=== PATIENT | female | born 1955 | race Hispanic/Latino ===

== ENCOUNTER 2017-03-16 04:45 | Inpatient (IN) | payer MEDICARE ==
[~2017-03-16] VITALS: Ht 157.5 cm; Wt 77.6 kg
[~2017-03-16 04:45] MED LIST: ACET650T9 PO; ATOR40TA71 PO; BRIM15OS OU; BRINOS OS; CARV25TA PO; CELE-84 PO; CLOP75TA32 PO; HYDR-4153 PO; INSLAN SQ; INSU3INS3 SQ; ISOS30TA6 PO; LORA0.5T2 PO
[2017-03-16] MEDS ORDERED: ACETAMINOPHEN 325 MG TAB ONE (05:22)
[2017-03-16 05:27] LABS: BASOPHILS % (AUTO) 0.6 % (0.0-5.0); EOSINOPHILS % (AUTO) 1.6 % (0.0-8.0); HEMATOCRIT 25.3 % (36-48); MEAN CORPUSCULAR HEMOGLOBIN 31.3 pg (27.0-33.0); MEAN CORPUSCULAR HGB CONC 32.5 g/dL (32.0-36.0); MEAN CORPUSCULAR VOLUME 96.2 fL (79-99); MONOCYTES % (AUTO) 5.3 % (3.0-13.0); NEUTROPHILS % (AUTO) 86.2 % (40.0-77.0); PLATELET COUNT (AUTO) 195 K/uL (130-400); RED BLOOD CELL COUNT(AUTO) 2.63 MIL/uL (4.00-5.50); RED CELL DISTRIBUTION WIDTH 13.5 % (11.0-15.5); WHITE BLOOD COUNT (AUTO) 16.3 K/uL (4.8-10.8)
[2017-03-16 05:45] LABS: ALBUMIN 3.7 g/dL (3.5-5.0); BILIRUBIN,TOTAL 0.4 mg/dL (0.2-1.0); POTASSIUM 4.8 mmol/L (3.5-5.1); TOTAL PROTEIN, SERUM 7.1 g/dL (6.0-8.3)
[2017-03-16 05:50] LABS: CREATININE 12.2 mg/dL (0.5-1.5)
[2017-03-16 05:51] LABS: CREATINE KINASE MB 0.8 ng/mL (0.5-3.6); CREATINE KINASE, TOTAL 60 U/L (21-232); MYOGLOBIN 183 ng/mL (10-92); TROPONIN I < 0.04 ng/mL (0.00-0.06)
[2017-03-16 06:03] LABS: LYMPHOCYTES % (AUTO) 6.3 % (21.0-51.0)
[2017-03-16] MEDS ORDERED: FUROSEMIDE 10 MG/ML 2ML VIAL ONE (07:36)
[2017-03-16] MEDS ORDERED: FUROSEMIDE 10 MG/ML 4ML VIAL ONE (07:36)
[2017-03-16 09:45] VITALS: BP 159/62
[2017-03-16] MEDS ORDERED: ALBUHFA IH (10:05)
[2017-03-16] MEDS ORDERED: SEVE800T7 PO (10:05)
[2017-03-16] MEDS ORDERED: HYDRALAZINE HCL 20 MG/ML VIAL IV PRN (11:15)
[2017-03-16] MEDS ORDERED: LORAZEPAM 0.5 MG TABLET PO PRN (11:15)
[2017-03-16 11:32] VITALS: BP 145/51
[2017-03-16] MEDS: ALBUTEROL SULFATE 0.083% 2.5 MG/3 ML INH IH PRN ×2 (11:49→18:33)
[2017-03-16] MEDS: SEVELAMER HCL 800 MG TABLET PO SCH ×2 (12:00→16:25)
[2017-03-16] MEDS: HYDRALAZINE HCL 25 MG TABLET PO SCH ×2 (12:26→21:59)
[2017-03-16] MEDS: DORZOLAMIDE HCL 2% 10ML DROPS OS SCH ×2 (14:00→22:01)
[2017-03-16] MEDS: BRIMONIDINE TARTRATE 0.2% 5 ML BOTTLE OU SCH ×2 (14:00→22:02)
[2017-03-16] MEDS ORDERED: 0.9% SODIUM CHLORIDE 250 ML IV BAG IV PRN (14:45)
[2017-03-16] MEDS ORDERED: ALBUMIN (HUMAN) 25% 100 ML IV PRN (14:45)
[2017-03-16] MEDS ORDERED: SODIUM CHLORIDE 0.9% 1000ML 1,000 ML IV PRN (14:45)
[2017-03-16] MEDS ORDERED: HEPARIN SODIUM 5000UNIT/ML 1ML VIAL IJ PRN (14:45)
[2017-03-16] MEDS ORDERED: EPOETIN ALFA 2,000 UNIT/ML VIAL SQ NR ×2 (15:00→22:00)
[2017-03-16 16:18] VITALS: BP 145/58
[2017-03-16] MEDS: INSULIN HUMULIN R 100 UNIT/ML 3ML SQ SCH ×2 (16:30→21:00)
[2017-03-16 19:13] VITALS: BP 163/54
[2017-03-16] MEDS: CARVEDILOL 25 MG TABLET PO SCH (22:00)
[2017-03-16 22:55] VITALS: BP 129/46
[2017-03-17 03:02] VITALS: BP 128/50
[2017-03-17 04:30] LABS: BASOPHILS % (AUTO) 1.2 % (0.0-5.0); EOSINOPHILS % (AUTO) 2.7 % (0.0-8.0); HEMATOCRIT 23.8 % (36-48); LYMPHOCYTES % (AUTO) 20.5 % (21.0-51.0); MEAN CORPUSCULAR HEMOGLOBIN 33.3 pg (27.0-33.0); MEAN CORPUSCULAR HGB CONC 34.8 g/dL (32.0-36.0); MEAN CORPUSCULAR VOLUME 95.6 fL (79-99); MONOCYTES % (AUTO) 10.4 % (3.0-13.0); NEUTROPHILS % (AUTO) 65.2 % (40.0-77.0); PLATELET COUNT (AUTO) 176 K/uL (130-400); RED BLOOD CELL COUNT(AUTO) 2.49 MIL/uL (4.00-5.50); RED CELL DISTRIBUTION WIDTH 13.4 % (11.0-15.5); WHITE BLOOD COUNT (AUTO) 7.9 K/uL (4.8-10.8)
[2017-03-17 04:50] LABS: ALBUMIN 3.3 g/dL (3.5-5.0); BILIRUBIN,TOTAL 0.5 mg/dL (0.2-1.0); CREATININE 7.1 mg/dL (0.5-1.5); MAGNESIUM 2.6 mg/dL (1.80-2.40); POTASSIUM 4.3 mmol/L (3.5-5.1); TOTAL PROTEIN, SERUM 6.8 g/dL (6.0-8.3)
[2017-03-17] MEDS: INSULIN HUMULIN R 100 UNIT/ML 3ML SQ SCH ×4 (06:43→21:03)
[2017-03-17] MEDS: INSULIN GLARGINE 100 UNITS/ML 10 ML VIAL SQ SCH (06:43)
[2017-03-17] MEDS: CLOPIDOGREL BISULFATE 75 MG TAB PO SCH (07:44)
[2017-03-17] MEDS: SEVELAMER HCL 800 MG TABLET PO SCH ×3 (07:44→16:30)
[2017-03-17] MEDS: FOLIC ACID/VITAMIN B COMP W-C 1 MG CAPSULE PO SCH (07:44)
[2017-03-17] MEDS: HYDRALAZINE HCL 25 MG TABLET PO SCH ×3 (07:45→20:51)
[2017-03-17] MEDS: ATORVASTATIN CALCIUM 40 MG TABLET PO SCH (07:45)
[2017-03-17] MEDS: ENOXAPARIN SODIUM 30 MG/0.3 ML SQ SCH (07:45)
[2017-03-17] MEDS: ISOSORBIDE MONO 30MG TAB SR PO SCH (07:45)
[2017-03-17] MEDS: CARVEDILOL 25 MG TABLET PO SCH ×2 (07:45→20:51)
[2017-03-17 07:47] VITALS: BP 135/47
[2017-03-17] MEDS: FAMOTIDINE/PF 20 MG/2 ML VIAL IV SCH (08:26)
[2017-03-17] MEDS: DORZOLAMIDE HCL 2% 10ML DROPS OS SCH ×3 (08:26→21:03)
[2017-03-17] MEDS: BRIMONIDINE TARTRATE 0.2% 5 ML BOTTLE OU SCH ×3 (08:26→21:03)
[2017-03-17 11:14] VITALS: BP 130/46
[2017-03-17 15:05] LABS: % IRON SATURATION 20.1 % (22-44)
[2017-03-17 16:00] VITALS: BP 130/42
[2017-03-17 19:11] VITALS: BP 142/56
[2017-03-17] MEDS ORDERED: VANCOMYCIN 1.5 GM in SODIUM CHLORIDE 0.9% 250 ML IV ONE (21:00)
[2017-03-17 23:04] VITALS: BP 140/49
[2017-03-18 03:39] VITALS: BP_SYST 136; BP_SYST 142; BP_DIAS 48; BP_DIAS 74
[2017-03-18 04:49] LABS: HEMATOCRIT 23.6 % (36-48); MEAN CORPUSCULAR HGB CONC 35.4 g/dL (32.0-36.0); PLATELET COUNT (AUTO) 170 K/uL (130-400); RED BLOOD CELL COUNT(AUTO) 2.45 MIL/uL (4.00-5.50); RED CELL DISTRIBUTION WIDTH 13.7 % (11.0-15.5)
[2017-03-18 05:02] LABS: MAGNESIUM 2.7 mg/dL (1.80-2.40); PHOSPHORUS 4.1 mg/dL (2.5-4.9); POTASSIUM 4.6 mmol/L (3.5-5.1)
[2017-03-18 05:03] LABS: CREATININE 9.8 mg/dL (0.5-1.5)
[2017-03-18] MEDS ORDERED: EPOETIN ALFA 2,000 UNIT/ML VIAL SQ NR (06:30)
[2017-03-18] MEDS ORDERED: HEPARIN SODIUM 5000UNIT/ML 1ML VIAL IJ PRN (06:30)
[2017-03-18] MEDS ORDERED: 0.9% SODIUM CHLORIDE 250 ML IV BAG IV PRN (06:30)
[2017-03-18] MEDS ORDERED: ALBUMIN (HUMAN) 25% 100 ML IV PRN (06:30)
[2017-03-18] MEDS ORDERED: SODIUM CHLORIDE 0.9% 1000ML 1,000 ML IV PRN (06:30)
[2017-03-18] MEDS: INSULIN HUMULIN R 100 UNIT/ML 3ML SQ SCH ×2 (06:37→12:07)
[2017-03-18] MEDS: INSULIN GLARGINE 100 UNITS/ML 10 ML VIAL SQ SCH (06:38)
[2017-03-18 07:41] VITALS: BP 106/40
[2017-03-18] MEDS: SEVELAMER HCL 800 MG TABLET PO SCH ×2 (08:00→12:00)
[2017-03-18] MEDS: HYDRALAZINE HCL 25 MG TABLET PO SCH (09:00)
[2017-03-18] MEDS: ISOSORBIDE MONO 30MG TAB SR PO SCH (09:00)
[2017-03-18] MEDS: FAMOTIDINE/PF 20 MG/2 ML VIAL IV SCH (09:00)
[2017-03-18] MEDS: ATORVASTATIN CALCIUM 40 MG TABLET PO SCH (09:41)
[2017-03-18] MEDS: CLOPIDOGREL BISULFATE 75 MG TAB PO SCH (09:41)
[2017-03-18] MEDS: FOLIC ACID/VITAMIN B COMP W-C 1 MG CAPSULE PO SCH (09:42)
[2017-03-18] MEDS: CARVEDILOL 25 MG TABLET PO SCH (09:42)
[2017-03-18] MEDS: DORZOLAMIDE HCL 2% 10ML DROPS OS SCH (09:44)
[2017-03-18] MEDS: BRIMONIDINE TARTRATE 0.2% 5 ML BOTTLE OU SCH (09:44)
[2017-03-18] MEDS: ENOXAPARIN SODIUM 30 MG/0.3 ML SQ SCH (09:46)
[2017-03-18 11:38] VITALS: BP 127/48
== END 2017-03-18 16:25 | disposition home or self-care (01) | DRG 189 ==
LOC: EDH 04:45 → EDHIP 07:45 → 2DH 09:43
PROVIDERS: ADMIT Internal Medicine; ATTEND Internal Medicine
PROC: 5A1D70Z Performance of Urinary Filtration, Intermittent, Less than 6 Hours Per Day (ICD-10-PCS; principal; 2017-03-16)
PROC: 5A1D70Z Performance of Urinary Filtration, Intermittent, Less than 6 Hours Per Day (ICD-10-PCS; 2017-03-18)
DX: J81.0 Acute pulmonary edema (principal); J81.1 Chronic pulmonary edema; E11.22 Type 2 diabetes mellitus with diabetic chronic kidney disease; E11.51 Type 2 diabetes mellitus with diabetic peripheral angiopathy without gangrene; N18.6 End stage renal disease; I12.0 Hypertensive chronic kidney disease with stage 5 chronic kidney disease or end stage renal disease; G47.33 Obstructive sleep apnea (adult) (pediatric); Z99.2 Dependence on renal dialysis; R06.03 Acute respiratory distress; D64.9 Anemia, unspecified; E87.70 Fluid overload, unspecified; R09.02 Hypoxemia; I25.10 Atherosclerotic heart disease of native coronary artery without angina pectoris; Z95.1 Presence of aortocoronary bypass graft; Z90.49 Acquired absence of other specified parts of digestive tract
CPT/HCPCS: 36415; 71010; 80048; 80053; 82550; 82553; 82728; 82948; 83540; 83550; 83735; 83874; 83880; 84100; 84484; 85025; 85027; 87040; 87186; 87804; 90935; 93005; 94640; 94664; 99291; J0885; J1644; J1650; J1815; J1940; J3370; J3490; J7030

== ENCOUNTER 2017-11-28 07:44 | Inpatient (IN) | payer MEDICARE ==
[~2017-11-28] VITALS: Ht 154.9 cm; Wt 71.0 kg
[~2017-11-28 07:44] MED LIST changes: +ALBUHFA IH; +SEVE800T7 PO
[2017-11-28] MEDS ORDERED: HEPARIN SODIUM 5000UNIT/ML 1ML VIAL ONE (07:55)
[2017-11-28 08:02] LABS: BASOPHILS % (AUTO) 0.4 % (0.0-5.0); EOSINOPHILS % (AUTO) 0.1 % (0.0-8.0); HEMATOCRIT 31.7 % (36-48); LYMPHOCYTES % (AUTO) 4.8 % (21.0-51.0); MEAN CORPUSCULAR HEMOGLOBIN 31.2 pg (27.0-33.0); MEAN CORPUSCULAR VOLUME 94.6 fL (79-99); MONOCYTES % (AUTO) 3.6 % (3.0-13.0); NEUTROPHILS % (AUTO) 91.1 % (40.0-77.0); PLATELET COUNT (AUTO) 211 K/uL (130-400); RED BLOOD CELL COUNT(AUTO) 3.35 MIL/uL (4.00-5.50); RED CELL DISTRIBUTION WIDTH 15.3 % (11.0-15.5); WHITE BLOOD COUNT (AUTO) 14.2 K/uL (4.8-10.8)
[2017-11-28] MEDS ORDERED: NITROGLYCERIN 50 MG/D5% WATER 1 BOT ONE (08:06)
[2017-11-28 08:26] LABS: INR 0.95 (0.85-1.15); PARTIAL THROMBOPLASTIN TIME 27.1 SEC (26.3-35.5)
[2017-11-28 08:47] LABS: ALBUMIN 4.2 g/dL (3.5-5.0); BILIRUBIN,TOTAL 0.7 mg/dL (0.2-1.0); TOTAL PROTEIN, SERUM 8.1 g/dL (6.0-8.3)
[2017-11-28 08:57] LABS: CREATININE 11.6 mg/dL (0.5-1.5); POTASSIUM 6.1 mmol/L (3.5-5.1)
[2017-11-28] MEDS ORDERED: CEFTRIAXONE SODIUM 1 GM ONE (09:01)
[2017-11-28] MEDS ORDERED: SODIUM CHLORIDE 0.9% 50 ML IV ONE (09:01)
[2017-11-28] MEDS ORDERED: ALBUTEROL SULFATE 0.083% 2.5 MG/3 ML INH IH ONE (09:10)
[2017-11-28] MEDS ORDERED: HEPARIN 25000 UNITS/250 ML D5W 250 ML IV ONE (09:47)
[2017-11-28] MEDS ORDERED: CARVEDILOL 12.5 MG TABLET PO ONE (09:54)
[2017-11-28] MEDS ORDERED: ONDANSETRON HCL 4 MG/2 ML VIAL ONE (13:52)
[2017-11-28] MEDS ORDERED: SODIUM CHLORIDE 0.9% 100 ML IV ONE (13:58)
[2017-11-28] MEDS ORDERED: SODIUM POLYSTYRENE SULFONATE 15 GM/60 ML ML ONE (15:21)
[2017-11-28 18:32] LABS: CREATINE KINASE MB 16.4 ng/mL (0.5-3.6)
[2017-11-28 18:36] LABS: TROPONIN I 4.98 ng/mL (0.00-0.06)
[2017-11-28] MEDS ORDERED: VANCOMYCIN 1GM+NS 250ML 250 ML IV ONE (18:39)
[2017-11-28] MEDS ORDERED: SODIUM CHLORIDE 0.9% 1000ML 1,000 ML IV ONE (18:39)
[2017-11-28] MEDS: ASPIRIN 81MG TAB.CHEW PO SCH (20:00)
[2017-11-28] MEDS ORDERED: LABETALOL HCL 5 MG/ML 20ML VIAL IV PRN (20:00)
[2017-11-28] MEDS ORDERED: LORAZEPAM 0.5 MG TABLET PO PRN (20:00)
[2017-11-28] MEDS ORDERED: ACETAMINOPHEN EXTENDED RELEASE 650 MG TABLET PO PRN (20:00)
[2017-11-28 20:12] LABS: INR 0.98 (0.85-1.15); PROTHROMBIN TIME 10.3 SEC (9.6-11.6)
[2017-11-28 20:19] LABS: PARTIAL THROMBOPLASTIN TIME 118.6 SEC (26.3-35.5)
[2017-11-28] MEDS: CARVEDILOL 25 MG TABLET PO SCH (21:00)
[2017-11-28] MEDS: BRIMONIDINE TARTRATE 0.2% 5 ML BOTTLE OU SCH (21:00)
[2017-11-28] MEDS ORDERED: CEFEPIME HCL 1 GM VIAL IVP SCH (21:00)
[2017-11-28] MEDS: DOXYCYCLINE HYCLATE 100 MG TABLET PO SCH (21:00)
[2017-11-28] MEDS: INSULIN HUMULIN R 100 UNIT/ML 3ML SQ SCH (21:00)
[2017-11-28] MEDS: HYDRALAZINE HCL 25 MG TABLET PO SCH (21:00)
[2017-11-28] MEDS ORDERED: ACETAMINOPHEN 325 MG TAB PO PRN (21:16)
[2017-11-28] MEDS ORDERED: HYDRALAZINE HCL 25 MG TABLET ONE (21:48)
[2017-11-28] MEDS ORDERED: DOXYCYCLINE HYCLATE 100 MG TABLET PO ONE (22:04)
[2017-11-29] VITALS (24 sets, daily range): BP systolic 96–190; BP diastolic 35–89
[2017-11-29] MEDS ORDERED: HEPARIN 25000 UNITS/250 ML D5W 250 ML IV PRN (01:15)
[2017-11-29] MEDS ORDERED: ISOSORBIDE DINITRATE 20 MG TABLET ONE (01:22)
[2017-11-29] MEDS ORDERED: CALCIUM GLUCONATE 1 GM in SODIUM CHLORIDE 0.9% 100 ML IV SCH (01:45)
[2017-11-29] MEDS ORDERED: VANCOMYCIN PROTOCOL PER PHARMACY IV SCH (01:45)
[2017-11-29] MEDS ORDERED: LEVOFLOXACIN 500 MG/D5W 100 ML 100 ML IV SCH (02:00)
[2017-11-29] MEDS: ZOSYN 3.375GM+NS 50ML 50 ML IV SCH ×2 (03:13→13:31)
[2017-11-29 03:17] LABS: CREATINE KINASE MB 15.7 ng/mL (0.5-3.6)
[2017-11-29 03:19] LABS: TROPONIN I 6.01 ng/mL (0.00-0.06)
[2017-11-29 05:05] LABS: HEMATOCRIT 27.8 % (36-48); MEAN CORPUSCULAR HEMOGLOBIN 31.1 pg (27.0-33.0); MEAN CORPUSCULAR HGB CONC 33.2 g/dL (32.0-36.0); MEAN CORPUSCULAR VOLUME 93.7 fL (79-99); PLATELET COUNT (AUTO) 159 K/uL (130-400); RED BLOOD CELL COUNT(AUTO) 2.97 MIL/uL (4.00-5.50); RED CELL DISTRIBUTION WIDTH 15.4 % (11.0-15.5); WHITE BLOOD COUNT (AUTO) 9.8 K/uL (4.8-10.8)
[2017-11-29 05:24] LABS: PROTHROMBIN TIME 10.5 SEC (9.6-11.6)
[2017-11-29 05:40] LABS: ALBUMIN 3.3 g/dL (3.5-5.0); BILIRUBIN,TOTAL 0.7 mg/dL (0.2-1.0); CREATININE 7.4 mg/dL (0.5-1.5); MAGNESIUM 2.4 mg/dL (1.80-2.40); PHOSPHORUS 6.2 mg/dL (2.5-4.9); POTASSIUM 4.6 mmol/L (3.5-5.1); THYROID STIMULATING HORMONE 1.02 uIU/mL (0.36-3.74); TOTAL PROTEIN, SERUM 7.5 g/dL (6.0-8.3); URIC ACID 3.1 mg/dL (2.6-7.2)
[2017-11-29] MEDS: INSULIN HUMULIN R 100 UNIT/ML 3ML SQ SCH ×4 (06:03→20:50)
[2017-11-29] MEDS: ATORVASTATIN CALCIUM 40 MG TABLET PO SCH (08:51)
[2017-11-29] MEDS: SEVELAMER HCL 800 MG TABLET PO SCH ×3 (08:51→16:55)
[2017-11-29] MEDS: CLOPIDOGREL BISULFATE 75 MG TAB PO SCH (08:51)
[2017-11-29] MEDS: HYDRALAZINE HCL 25 MG TABLET PO SCH ×3 (08:52→21:36)
[2017-11-29] MEDS: DOXYCYCLINE HYCLATE 100 MG TABLET PO SCH (08:52)
[2017-11-29] MEDS: PANTOPRAZOLE SODIUM 40 MG TABLET.DR PO SCH (08:52)
[2017-11-29] MEDS: ISOSORBIDE DINITRATE 20 MG TABLET PO SCH ×3 (08:52→21:37)
[2017-11-29] MEDS: CARVEDILOL 25 MG TABLET PO SCH ×2 (08:52→21:37)
[2017-11-29] MEDS ORDERED: ISOSORBIDE MONO 30MG TAB SR PO SCH (09:00)
[2017-11-29] MEDS: INSULIN GLARGINE 100 UNITS/ML 10 ML VIAL SQ SCH (09:00)
[2017-11-29] MEDS: BRIMONIDINE TARTRATE 0.2% 5 ML BOTTLE OU SCH ×3 (09:00→21:00)
[2017-11-29] MEDS ORDERED: ONDANSETRON HCL MDV 20ML 2 MG/ML VIAL IVP PRN (11:15)
[2017-11-29] MEDS: ASPIRIN 81MG TAB.CHEW PO SCH (20:00)
[2017-11-30] VITALS (7 sets, daily range): BP systolic 98–166; BP diastolic 43–62
[2017-11-30] MEDS: ZOSYN 3.375GM+NS 50ML 50 ML IV SCH ×2 (02:15→13:37)
[2017-11-30 04:47] LABS: HEMATOCRIT 25.7 % (36-48); MEAN CORPUSCULAR HEMOGLOBIN 32.2 pg (27.0-33.0); MEAN CORPUSCULAR HGB CONC 34.1 g/dL (32.0-36.0); MEAN CORPUSCULAR VOLUME 94.5 fL (79-99); PLATELET COUNT (AUTO) 180 K/uL (130-400); RED BLOOD CELL COUNT(AUTO) 2.73 MIL/uL (4.00-5.50); RED CELL DISTRIBUTION WIDTH 15.5 % (11.0-15.5); WHITE BLOOD COUNT (AUTO) 8.7 K/uL (4.8-10.8)
[2017-11-30 04:56] LABS: EOSINOPHILS % (MANUAL) 3 % (1-6); LYMPHOCYTES % (MANUAL) 20 % (22-44); MAN.DIFF COMMENT-IMPRESSION MANUAL DIFFERENTIAL; MONOCYTES % (MANUAL) 8 % (2-9); PLATELET MORPHOLOGY COMMENT ADEQUATE; SEGMENTED NEUTROPHILS % 69 % (40-70)
[2017-11-30 05:00] LABS: POTASSIUM 4.1 mmol/L (3.5-5.1)
[2017-11-30 05:02] LABS: CREATININE 9.8 mg/dL (0.5-1.5)
[2017-11-30] MEDS: INSULIN HUMULIN R 100 UNIT/ML 3ML SQ SCH ×4 (06:05→21:47)
[2017-11-30] MEDS: HYDRALAZINE HCL 25 MG TABLET PO SCH ×4 (09:00→21:45)
[2017-11-30] MEDS: ISOSORBIDE DINITRATE 20 MG TABLET PO SCH ×3 (09:00→21:44)
[2017-11-30] MEDS: CARVEDILOL 25 MG TABLET PO SCH ×3 (09:00→21:45)
[2017-11-30] MEDS: SEVELAMER HCL 800 MG TABLET PO SCH ×2 (09:04→12:41)
[2017-11-30] MEDS: ATORVASTATIN CALCIUM 40 MG TABLET PO SCH (09:06)
[2017-11-30] MEDS: CLOPIDOGREL BISULFATE 75 MG TAB PO SCH (09:07)
[2017-11-30] MEDS: INSULIN GLARGINE 100 UNITS/ML 10 ML VIAL SQ SCH (09:17)
[2017-11-30] MEDS: BRIMONIDINE TARTRATE 0.2% 5 ML BOTTLE OU SCH ×3 (09:17→21:00)
[2017-11-30] MEDS: PANTOPRAZOLE SODIUM 40 MG TABLET.DR PO SCH (09:19)
[2017-11-30 09:20] LABS: HEPATITIS Bs ANTIGEN SCREEN P Negative (Negative)
[2017-11-30] MEDS ORDERED: ALBUMIN (HUMAN) 25% 100 ML IV PRN (13:00)
[2017-11-30] MEDS ORDERED: 0.9% SODIUM CHLORIDE 250 ML IV BAG IV PRN (13:00)
[2017-11-30] MEDS ORDERED: SODIUM CHLORIDE 0.9% 1000ML 1,000 ML IV PRN (13:00)
[2017-11-30] MEDS ORDERED: COMPOUND IV REFRIGERATED 1 EACH IVSOLN MISC PRN (15:00)
[2017-11-30] MEDS: ASPIRIN 81MG TAB.CHEW PO SCH ×2 (20:00→21:44)
[2017-11-30] MEDS ORDERED: EPOETIN ALFA 10,000 UNIT/ML VIAL SQ ONE (21:00)
[2017-12-01] MEDS: ZOSYN 3.375GM+NS 50ML 50 ML IV SCH ×2 (02:19→14:39)
[2017-12-01 03:40] VITALS: BP 143/55
[2017-12-01 03:57] LABS: BASOPHILS % (AUTO) 1.4 % (0.0-5.0); EOSINOPHILS % (AUTO) 2.6 % (0.0-8.0); HEMATOCRIT 27.1 % (36-48); LYMPHOCYTES % (AUTO) 18.6 % (21.0-51.0); MEAN CORPUSCULAR HEMOGLOBIN 32.4 pg (27.0-33.0); MEAN CORPUSCULAR HGB CONC 34.5 g/dL (32.0-36.0); NEUTROPHILS % (AUTO) 65.4 % (40.0-77.0); PLATELET COUNT (AUTO) 185 K/uL (130-400); RED BLOOD CELL COUNT(AUTO) 2.88 MIL/uL (4.00-5.50); RED CELL DISTRIBUTION WIDTH 15.2 % (11.0-15.5); WHITE BLOOD COUNT (AUTO) 7.4 K/uL (4.8-10.8)
[2017-12-01 04:23] LABS: CREATININE 6.5 mg/dL (0.5-1.5); POTASSIUM 4.2 mmol/L (3.5-5.1)
[2017-12-01] MEDS: INSULIN HUMULIN R 100 UNIT/ML 3ML SQ SCH ×4 (06:28→21:01)
[2017-12-01 07:54] VITALS: BP 163/61
[2017-12-01] MEDS: CLOPIDOGREL BISULFATE 75 MG TAB PO SCH (08:09)
[2017-12-01] MEDS: PANTOPRAZOLE SODIUM 40 MG TABLET.DR PO SCH (08:09)
[2017-12-01] MEDS: HYDRALAZINE HCL 25 MG TABLET PO SCH ×3 (08:09→21:49)
[2017-12-01] MEDS: ATORVASTATIN CALCIUM 40 MG TABLET PO SCH (08:10)
[2017-12-01] MEDS: ISOSORBIDE DINITRATE 20 MG TABLET PO SCH ×3 (08:10→21:50)
[2017-12-01] MEDS: CARVEDILOL 25 MG TABLET PO SCH ×2 (08:10→21:49)
[2017-12-01] MEDS: SEVELAMER HCL 800 MG TABLET PO SCH ×3 (08:10→16:57)
[2017-12-01] MEDS: INSULIN GLARGINE 100 UNITS/ML 10 ML VIAL SQ SCH (08:19)
[2017-12-01] MEDS: BRIMONIDINE TARTRATE 0.2% 5 ML BOTTLE OU SCH ×3 (08:23→21:00)
[2017-12-01 12:18] VITALS: BP 162/64
[2017-12-01 16:00] VITALS: BP 138/59
[2017-12-01 19:32] VITALS: BP 138/49
[2017-12-01] MEDS: ASPIRIN 81MG TAB.CHEW PO SCH (20:00)
[2017-12-01] MEDS: ALBUTEROL SULFATE 0.083% 2.5 MG/3 ML INH IH PRN (21:21)
[2017-12-01 23:39] VITALS: BP 122/54
[2017-12-02] MEDS: ZOSYN 3.375GM+NS 50ML 50 ML IV SCH ×2 (01:26→14:17)
[2017-12-02 03:54] LABS: BASOPHILS % (AUTO) 1.1 % (0.0-5.0); EOSINOPHILS % (AUTO) 2.9 % (0.0-8.0); HEMATOCRIT 27.1 % (36-48); LYMPHOCYTES % (AUTO) 19.2 % (21.0-51.0); MEAN CORPUSCULAR HEMOGLOBIN 32.9 pg (27.0-33.0); MEAN CORPUSCULAR HGB CONC 34.7 g/dL (32.0-36.0); MEAN CORPUSCULAR VOLUME 94.9 fL (79-99); MONOCYTES % (AUTO) 9.7 % (3.0-13.0); NEUTROPHILS % (AUTO) 67.1 % (40.0-77.0); PLATELET COUNT (AUTO) 183 K/uL (130-400); RED BLOOD CELL COUNT(AUTO) 2.85 MIL/uL (4.00-5.50); RED CELL DISTRIBUTION WIDTH 15.3 % (11.0-15.5); WHITE BLOOD COUNT (AUTO) 9.1 K/uL (4.8-10.8)
[2017-12-02 03:59] VITALS: BP 147/59
[2017-12-02 04:07] LABS: MAGNESIUM 2.7 mg/dL (1.80-2.40); PHOSPHORUS 5.4 mg/dL (2.5-4.9); POTASSIUM 4.4 mmol/L (3.5-5.1)
[2017-12-02 04:17] LABS: CREATININE 9.3 mg/dL (0.5-1.5)
[2017-12-02] MEDS: INSULIN HUMULIN R 100 UNIT/ML 3ML SQ SCH ×2 (06:11→11:30)
[2017-12-02] MEDS: ALBUTEROL SULFATE 0.083% 2.5 MG/3 ML INH IH PRN (07:07)
[2017-12-02 08:00] VITALS: BP 164/52
[2017-12-02] MEDS: HYDRALAZINE HCL 25 MG TABLET PO SCH ×2 (09:00→14:17)
[2017-12-02] MEDS: SEVELAMER HCL 800 MG TABLET PO SCH ×2 (09:32→11:40)
[2017-12-02] MEDS: ISOSORBIDE DINITRATE 20 MG TABLET PO SCH ×2 (09:33→14:16)
[2017-12-02] MEDS: ATORVASTATIN CALCIUM 40 MG TABLET PO SCH (09:33)
[2017-12-02] MEDS: PANTOPRAZOLE SODIUM 40 MG TABLET.DR PO SCH (09:33)
[2017-12-02] MEDS: CARVEDILOL 25 MG TABLET PO SCH (09:33)
[2017-12-02] MEDS: CLOPIDOGREL BISULFATE 75 MG TAB PO SCH (09:33)
[2017-12-02] MEDS: BRIMONIDINE TARTRATE 0.2% 5 ML BOTTLE OU SCH ×2 (09:38→14:17)
[2017-12-02] MEDS: INSULIN GLARGINE 100 UNITS/ML 10 ML VIAL SQ SCH (09:38)
[2017-12-02 11:42] VITALS: BP 100/48
[2017-12-05] MEDS ORDERED: VANCOMYCIN 1GM+NS 250ML 250 ML IV SCH (09:00)
== END 2017-12-02 15:35 | disposition home or self-care (01) | DRG 871 ==
LOC: EDH 07:44 → EDHIP 11:48 → 2CH 11-29 00:02 → 2DH 11-30 17:27
PROVIDERS: ADMIT Internal Medicine Critical Care Medicine; ATTEND Internal Medicine Critical Care Medicine
PROC: 5A1D70Z Performance of Urinary Filtration, Intermittent, Less than 6 Hours Per Day (ICD-10-PCS; principal; 2017-11-28)
PROC: 5A1D70Z Performance of Urinary Filtration, Intermittent, Less than 6 Hours Per Day (ICD-10-PCS; 2017-11-30)
PROC: 5A1D70Z Performance of Urinary Filtration, Intermittent, Less than 6 Hours Per Day (ICD-10-PCS; 2017-12-02)
DX: A41.9 Sepsis, unspecified organism (principal); I21.4 Non-ST elevation (NSTEMI) myocardial infarction; J81.0 Acute pulmonary edema; N18.6 End stage renal disease; J18.9 Pneumonia, unspecified organism; I50.23 Acute on chronic systolic (congestive) heart failure; J96.01 Acute respiratory failure with hypoxia; I13.2 Hypertensive heart and chronic kidney disease with heart failure and with stage 5 chronic kidney disease, or end stage renal disease; B34.9 Viral infection, unspecified; E11.22 Type 2 diabetes mellitus with diabetic chronic kidney disease; E11.51 Type 2 diabetes mellitus with diabetic peripheral angiopathy without gangrene; D64.9 Anemia, unspecified; E78.5 Hyperlipidemia, unspecified; I34.0 Nonrheumatic mitral (valve) insufficiency; E87.5 Hyperkalemia; I25.10 Atherosclerotic heart disease of native coronary artery without angina pectoris; Z82.49 Family history of ischemic heart disease and other diseases of the circulatory system; Z95.1 Presence of aortocoronary bypass graft; Z91.041 Radiographic dye allergy status; Z79.899 Other long term (current) drug therapy; Z79.02 Long term (current) use of antithrombotics/antiplatelets; Z99.2 Dependence on renal dialysis; Z28.21 Immunization not carried out because of patient refusal; Z79.84 Long term (current) use of oral hypoglycemic drugs
CPT/HCPCS: 36415; 71045; 80048; 80053; 80061; 82550; 82553; 82948; 83605; 83735; 83874; 84100; 84443; 84484; 84550; 85025; 85027; 85610; 85730; 86706; 87040; 87340; 87804; 90935; 93005; 93306; 94640; 94664; A4218; J0610; J0692; J0696; J0885; J1644; J1815; J2405; J2543; J3370; J3490; J7030

== ENCOUNTER 2020-02-19 09:18 | Emergency (ER) | payer MEDICARE ==
[~2020-02-19 09:18] MED LIST changes: -ACET650T9 PO; -ALBUHFA IH; +ATOR10 PO; -ATOR40TA71 PO; -BRIM15OS OU; -BRINOS OS; -CARV25TA PO; -CELE-84 PO; -CLOP75TA32 PO; -HYDR-4153 PO; -INSLAN SQ; +INSU100I26 SQ; -INSU3INS3 SQ; -ISOS30TA6 PO; -LORA0.5T2 PO; +LORA10TA7 PO; +LORA2TAB80 PO; +NITR0.4T50 SL; +RIVA10TA PO; +SODI10PO2 PO; +TICA90TA PO
[2020-02-19] MEDS ORDERED: DEXTROSE 50%-WATER 50 ML DISP.SYRIN IV ONE (10:10)
[2020-02-19 10:28] LABS: BASOPHILS % (AUTO) 0.7 % (0.0-5.0); EOSINOPHILS % (AUTO) 1.7 % (0.0-8.0); HEMATOCRIT 31.9 % (36-48); LYMPHOCYTES % (AUTO) 9.9 % (21.0-51.0); MEAN CORPUSCULAR HEMOGLOBIN 29.3 pg (27.0-33.0); MEAN CORPUSCULAR HGB CONC 32.6 g/dL (32.0-36.0); MEAN CORPUSCULAR VOLUME 89.9 fL (79-99); MONOCYTES % (AUTO) 5.1 % (3.0-13.0); NEUTROPHILS % (AUTO) 82.3 % (40.0-77.0); PLATELET COUNT (AUTO) 271 K/uL (130-400); RED BLOOD CELL COUNT(AUTO) 3.55 MIL/uL (4.00-5.50); RED CELL DISTRIBUTION WIDTH 16.9 % (11.0-15.5); WHITE BLOOD COUNT (AUTO) 7.6 K/uL (4.8-10.8)
[2020-02-19 10:49] LABS: ALBUMIN 3.6 g/dL (3.5-5.0); BILIRUBIN,TOTAL 0.6 mg/dL (0.2-1.0); POTASSIUM 4.3 mmol/L (3.5-5.1); TOTAL PROTEIN, SERUM 8.8 g/dL (6.0-8.3)
[2020-02-19 10:52] LABS: CREATININE 8.1 mg/dL (0.5-1.5)
== END 2020-02-19 12:51 | disposition home or self-care (01) ==
LOC: EDH 09:18
DX: E08.649 Diabetes mellitus due to underlying condition with hypoglycemia without coma (principal); M62.81 Muscle weakness (generalized); I12.0 Hypertensive chronic kidney disease with stage 5 chronic kidney disease or end stage renal disease; N18.6 End stage renal disease; Z99.2 Dependence on renal dialysis; Z95.1 Presence of aortocoronary bypass graft; Z91.041 Radiographic dye allergy status; Z87.891 Personal history of nicotine dependence
CPT/HCPCS: 36415; 80053; 82948; 85025; 96365; 96366; 99284; J7070

== ENCOUNTER 2020-02-24 15:23 | Inpatient (IN) | payer MEDICARE ==
[~2020-02-24] VITALS: Ht 157.5 cm; Wt 70.4 kg
[2020-02-24 16:02] LABS: BASOPHILS % (AUTO) 0.6 % (0.0-5.0); EOSINOPHILS % (AUTO) 0.2 % (0.0-8.0); HEMATOCRIT 31.4 % (36-48); LYMPHOCYTES % (AUTO) 10.8 % (21.0-51.0); MEAN CORPUSCULAR HEMOGLOBIN 29.6 pg (27.0-33.0); MEAN CORPUSCULAR HGB CONC 31.8 g/dL (32.0-36.0); MEAN CORPUSCULAR VOLUME 92.9 fL (79-99); MONOCYTES % (AUTO) 5.9 % (3.0-13.0); NEUTROPHILS % (AUTO) 82.2 % (40.0-77.0); PLATELET COUNT (AUTO) 273 K/uL (130-400); RED BLOOD CELL COUNT(AUTO) 3.38 MIL/uL (4.00-5.50); RED CELL DISTRIBUTION WIDTH 17.3 % (11.0-15.5); WHITE BLOOD COUNT (AUTO) 8.6 K/uL (4.8-10.8)
[2020-02-24 16:12] LABS: INR 1.61 (0.85-1.15); PARTIAL THROMBOPLASTIN TIME 33.9 SEC (26.3-35.5); PROTHROMBIN TIME 17.1 SEC (9.6-11.6)
[2020-02-24 16:15] LABS: MAGNESIUM 2.8 mg/dL (1.80-2.40); PHOSPHORUS 6.2 mg/dL (2.5-4.9)
[2020-02-24 16:20] LABS: ALBUMIN 3.7 g/dL (3.5-5.0); BILIRUBIN,TOTAL 0.7 mg/dL (0.2-1.0); TOTAL PROTEIN, SERUM 8.3 g/dL (6.0-8.3)
[2020-02-24 16:24] LABS: CREATININE 9.5 mg/dL (0.5-1.5)
[2020-02-24] MEDS ORDERED: ASPIRIN 325 MG TABLET ONE (16:50)
[2020-02-24] MEDS ORDERED: MORPHINE SULFATE 2 MG/ML 1ML SYG IVP PRN (18:15)
[2020-02-24] MEDS ORDERED: ONDANSETRON HCL 4 MG/2 ML VIAL IVP PRN (18:15)
[2020-02-24 19:45] VITALS: BP 142/78
[2020-02-24] MEDS: METOPROLOL TARTRATE 25 MG TAB PO SCH (20:51)
[2020-02-24] MEDS ORDERED: ATORVASTATIN CALCIUM 40 MG TABLET PO SCH (21:00)
[2020-02-24] MEDS ORDERED: ISOS60TA4 PO (21:56)
[2020-02-24] MEDS ORDERED: LORA0.5T83 PO (21:56)
[2020-02-24] MEDS ORDERED: ALBU18HF7 IH (22:09)
[2020-02-24 22:42] LABS: TROPONIN I 1.76 ng/mL (0.00-0.06)
[2020-02-25] VITALS (13 sets, daily range): BP systolic 82–132; BP diastolic 19–69
[2020-02-25] MEDS: ACETAMINOPHEN 325 MG TAB PO PRN ×2 (03:05→12:44)
[2020-02-25 06:08] LABS: HEMATOCRIT 26.7 % (36-48); MEAN CORPUSCULAR HEMOGLOBIN 29.6 pg (27.0-33.0); MEAN CORPUSCULAR HGB CONC 33.3 g/dL (32.0-36.0); MEAN CORPUSCULAR VOLUME 88.7 fL (79-99); NUCLEATED RED BLOOD CELLS 0.3 % (0.0-0.19); PLATELET COUNT (AUTO) 234 K/uL (130-400); RED BLOOD CELL COUNT(AUTO) 3.01 MIL/uL (4.00-5.50); RED CELL DISTRIBUTION WIDTH 16.7 % (11.0-15.5); WHITE BLOOD COUNT (AUTO) 7.8 K/uL (4.8-10.8)
[2020-02-25 06:19] LABS: CREATININE 6.4 mg/dL (0.5-1.5); POTASSIUM 4.2 mmol/L (3.5-5.1)
[2020-02-25 06:37] LABS: HEMOGLOBIN A1C 6.1 % (4.0-6.0)
[2020-02-25 06:41] LABS: MAGNESIUM 2.5 mg/dL (1.80-2.40)
[2020-02-25 06:43] LABS: B-TYPE NATRIURETIC PEPTIDE > 5000 pg/mL (0-100)
[2020-02-25 06:50] LABS: TROPONIN I 1.84 ng/mL (0.00-0.06)
[2020-02-25] MEDS: METOPROLOL TARTRATE 25 MG TAB PO SCH (08:24)
[2020-02-25] MEDS ORDERED: ENOXAPARIN SODIUM 30 MG/0.3 ML SQ SCH (09:00)
[2020-02-25] MEDS ORDERED: ASPIRIN 81MG TAB.CHEW PO SCH (09:00)
[2020-02-25] MEDS ORDERED: GLUCAGON 1MG KIT 1 MG ML IM PRN (12:30)
[2020-02-25] MEDS ORDERED: DEXTROSE 50%-WATER 50 ML DISP.SYRIN IV PRN (12:30)
[2020-02-25] MEDS ORDERED: PHARMACY COMMUNICATION MISC PRN (12:45)
[2020-02-25] MEDS ORDERED: 0.9% SODIUM CHLORIDE 1000 ML IV BAG IV PRN (12:45)
[2020-02-25] MEDS ORDERED: ACETAMINOPHEN 325 MG TAB PO PRN (12:45)
[2020-02-25] MEDS ORDERED: ALBUMIN (HUMAN) 25% 100 ML IV PRN (12:45)
[2020-02-25] MEDS ORDERED: NITROGLYCERIN 0.4 MG SL TAB SL PRN (12:45)
[2020-02-25] MEDS ORDERED: HEPARIN SODIUM 5000UNIT/ML 1ML VIAL IJ PRN ×2 (12:45)
[2020-02-25] MEDS ORDERED: SODIUM CHLORIDE 0.9% 1000ML 1,000 ML IV PRN (12:45)
[2020-02-25] MEDS ORDERED: LIDOCAINE HCL-MPF 1% 2ML VIAL IJ PRN (12:45)
[2020-02-25] MEDS ORDERED: PHARMACY COMMUNICATION MISC SCH (15:15)
[2020-02-25] MEDS ORDERED: MIDODRINE HCL 5 MG TABLET ONE (15:16)
[2020-02-25] MEDS ORDERED: NOREPINEPHRINE 4MG/NS 250ML 250 ML IV SCH (15:45)
[2020-02-25 15:53] LABS: ABG BASE EXCESS -7.6 mmol/L (-2.0-3.0); ABG HCO3 15.5 mmol/L (21.0-28.0); ABG PCO2 23 mmHg (32-45)
[2020-02-25] MEDS ORDERED: SODIUM BICARB 50MEQ 50ML VIAL 100 ML ONE (15:55)
[2020-02-25] MEDS ORDERED: PROPOFOL 10 MG/ML 20ML VIAL IV ONE (15:59)
[2020-02-25] MEDS ORDERED: MIDODRINE HCL 5 MG TABLET PO SCH ×2 (16:25→21:00)
[2020-02-25] MEDS ORDERED: INSULIN HUMULIN R 100 UNIT/ML 3ML SQ SCH (16:30)
[2020-02-26 08:14] LABS: HEPATITIS A ANTIBODY IGM Negative (Negative); HEPATITIS B CORE IGM Negative (Negative); HEPATITIS Bs ANTIGEN SCREEN P Negative (Negative)
== END 2020-02-25 16:22 | disposition expired ==
LOC: EDH 15:23 → EDHIP 17:17 → 4CH 20:00 → 2DH 02-25 16:05
PROVIDERS: ADMIT Internal Medicine Infectious Disease; ATTEND Internal Medicine Infectious Disease
PROC: 5A1D70Z Performance of Urinary Filtration, Intermittent, Less than 6 Hours Per Day (ICD-10-PCS; principal; 2020-02-24)
PROC: 5A1D70Z Performance of Urinary Filtration, Intermittent, Less than 6 Hours Per Day (ICD-10-PCS; 2020-02-25)
PROC: 0BH17EZ Insertion of Endotracheal Airway into Trachea, Via Natural or Artificial Opening (ICD-10-PCS; 2020-02-25)
PROC: 5A1935Z Respiratory Ventilation, Less than 24 Consecutive Hours (ICD-10-PCS; 2020-02-25)
PROC: 5A09357 Assistance with Respiratory Ventilation, Less than 24 Consecutive Hours, Continuous Positive Airway Pressure (ICD-10-PCS; 2020-02-25)
PROC: 5A12012 Performance of Cardiac Output, Single, Manual (ICD-10-PCS; 2020-02-25)
DX: I21.4 Non-ST elevation (NSTEMI) myocardial infarction (principal); N18.6 End stage renal disease; J81.0 Acute pulmonary edema; J96.90 Respiratory failure, unspecified, unspecified whether with hypoxia or hypercapnia; I12.0 Hypertensive chronic kidney disease with stage 5 chronic kidney disease or end stage renal disease; Z20.828 Contact with and (suspected) exposure to other viral communicable diseases; E11.22 Type 2 diabetes mellitus with diabetic chronic kidney disease; I25.10 Atherosclerotic heart disease of native coronary artery without angina pectoris; I95.9 Hypotension, unspecified; I46.9 Cardiac arrest, cause unspecified; R57.0 Cardiogenic shock; E87.5 Hyperkalemia; R53.81 Other malaise; M54.5 Low back pain; E78.5 Hyperlipidemia, unspecified; I25.2 Old myocardial infarction; Z95.1 Presence of aortocoronary bypass graft; Z90.49 Acquired absence of other specified parts of digestive tract; Z98.61 Coronary angioplasty status; Z88.6 Allergy status to analgesic agent; Z91.041 Radiographic dye allergy status; Z83.3 Family history of diabetes mellitus; Z99.2 Dependence on renal dialysis
CPT/HCPCS: 31500; 36415; 36600; 71045; 80048; 80053; 80074; 82435; 82550; 82803; 82947; 82948; 83036; 83605; 83735; 83874; 83880; 84100; 84132; 84145; 84295; 84484; 85018; 85025; 85027; 85610; 85730; 87040; 87426; 90935; 92950; 93005; 94002; 94660; G0378; J1650; J2704; J3490; J7070; P9046; U0003